=== PATIENT | female | born 1960 | race Caucasian/White ===

== ENCOUNTER 2017-10-29 08:12 | Emergency (ER) | payer OTHER ==
[2017-10-29] MEDS ORDERED: methylPREDNISolone SOD SUCCI 125 MG/2 ML VIAL IV STA (08:34)
--- NOTE | 2017-10-29 08:55 | XR ---
EXAMINATION TYPE: XR chest 2V DATE OF EXAM: 10/29/2017 COMPARISON: NONE TECHNIQUE: PA and lateral views submitted. HISTORY: Cough and pain FINDINGS: The lungs are clear and there is no pneumothorax, pleural effusion, or focal pneumonia. Large bulla involving the right upper lobe with areas of subsegmental consolidation which may be compressive. Di ffuse COPD noted. Mediport catheter noted. No pleural effusion. Degenerative change of the spine note d. IMPRESSION: 1. Diffuse COPD with large bulla involving the right upper lobe. Area of consolidation seen in the ri ght perihilar region. May be compressive related to the bulla rather than related to mass or infiltra te correlate clinically.
[2017-10-29 09:03] LABS: Basophils % (A) 0 %; Eosinophils # (A) 0.1 k/uL (0-0.7); Eosinophils % (A) 1 %; HCT 40.5 % (34.0-46.0); HGB 13.2 gm/dL (11.4-16.0); Lymphocytes # (A) 2.2 k/uL (1.0-4.8); Lymphocytes % (A) 22 %; MCH 36.3 pg (25.0-35.0); MCHC 32.6 g/dL (31.0-37.0); MCV 111.4 fL (80.0-100.0); Macrocytosis Marked; Mean Platelet Volume 6.9; Monocytes # (A) 0.5 k/uL (0-1.0); Monocytes % (A) 5 %; Neutrophils # (A) 7.1 k/uL (1.3-7.7); Neutrophils % (A) 71 %; Platelet Count 255 k/uL (150-450); RBC 3.64 m/uL (3.80-5.40); RDW 13.4 % (11.5-15.5); WBC 10.1 k/uL (3.8-10.6)
--- NOTE | 2017-10-29 09:03 | ED ---
SOB HPI - General Chief Complaint: Shortness of Breath Stated Complaint: LAURO Time Seen by Provider: 10/29/17 08:28 Source: patient, EMS, RN notes reviewed Mode of arrival: EMS Limitations: no limitations - History of Present Illness Initial Comments: This a 57-year-old female presents emergency Department chief complaint cough congestion, shortness of breath. Patient states she has known COPD, lung cancer. [facility] [place] Patient states that cancers on the right side. Patient states that [facility] states his been getting worse cough congestion shortness breath the last few days. She was given a DuoNeb treatment by EMS which improved her symptoms. She denies any known fever, chills. Patient denies headache, dizziness she does admit to some sinus congestion. Patient currently is at [place] for alcohol abuse treatment - Related Data Home Medications Medication Instructions Recorded Confirmed Acetaminophen Tab [Tylenol Tab] 650 mg PO Q4H PRN 10/29/17 10/29/17 Albuterol Nebulized [Ventolin 2.5 mg INHALATION RT-Q4H PRN 10/29/17 10/29/17 Nebulized] Calcium Carb/Magnesium Ox,Carb 2 tab PO TID 10/29/17 10/29/17 [Jered-Mag 500-250 MG Chewable] Dexamethasone [Hexadrol] 4 mg PO DAILY 10/29/17 10/29/17 Ibuprofen [Motrin] 600 mg PO Q6H PRN 10/29/17 10/29/17 Mometasone/Formoterol [Dulera 200 2 puff INHALATION RT-BID 10/29/17 10/29/17 Mcg/5 Mcg Inhaler] PARoxetine HCL [Paxil] 40 mg PO DAILY 10/29/17 10/29/17 cloNIDine HCL [Catapres] 0.1 - 0.3 mg PO Q4H PRN 10/29/17 10/29/17 traZODone HCL 50 - 150 mg PO HS 10/29/17 10/29/17 Previous Rx's Medication Instructions Recorded Azithromycin [Zithromax Z-pack] 0 mg PO DIRECTED #1 pack 10/29/17 Ipratropium-Albuterol Nebulize 3 ml INHALATION QID #1 box 10/29/17 [Duoneb 0.5 mg-3 mg/3 ml Soln] predniSONE 50 mg PO DAILY #5 tab 10/29/17 Allergies Allergy/AdvReac Type Severity Reaction Status Date / Time No Known Allergies Allergy Verified 10/29/17 09:04 Review of Systems ROS Statement: Those systems with pertinent positive or pertinent negative responses have been documented in the HPI. ROS Other: All systems not noted in ROS Statement are negative. Past Medical History Past Medical History: COPD, Pneumonia Additional Past Medical History / Comment(s): Lung cancer History of Any Multi-Drug Resistant Organisms: MRSA Date of last positivie culture/infection: 01/2017 MDRO Source:: sputum Past Surgical History: Hysterectomy Additional Past Surgical History / Comment(s): currently in rehab for ETOH Past Psychological History: ADD/ADHD, Anxiety, Depression Smoking Status: Current every day smoker Past Alcohol Use History: Abuse Past Drug Use History: None Reported General Exam Limitations: no limitations General appearance: alert, in no apparent distress Head exam: Present: atraumatic, normocephalic, normal inspection Eye exam: Present: normal appearance, PERRL, EOMI. Absent: scleral icterus, conjunctival injection, periorbital swelling ENT exam: Present: normal exam, normal oropharynx, mucous membranes moist, TM's normal bilaterally Neck exam: Present: normal inspection, full ROM. Absent: tenderness, meningismus, lymphadenopathy Respiratory exam: Present: wheezes. Absent: normal lung sounds bilaterally, respiratory distress, rales, rhonchi, stridor Cardiovascular Exam: Present: regular rate, normal rhythm, normal heart sounds. Absent: systolic murmur, diastolic murmur, rubs, gallop, clicks GI/Abdominal exam: Present: soft, normal bowel sounds. Absent: distended, tenderness, guarding, rebound, rigid Course Vital Signs 10/29/17 10/29/17 08:14 08:25 Temperature 98.5 F Pulse Rate 97 94 Respiratory 20 20 Rate Blood Pressure 111/62 O2 Sat by Pulse 94 L Oximetry - Reevaluation(s) Reevaluation #1: 10/29/17 09:50 Patient was reevaluated and updated on results. She states her shortness of breath has not returned she still feels well. Medical Decision Making - Medical Decision Making 57-year-old female presents emergency Department with chief complaint of cough congestion. Patient has underlying COPD, cancer. Patient states she still feels improved after 1 DuoNeb treatment. She was given Solu-Medrol in emergency department. Patient we discharged on prednisone, DuoNeb, azithromycin. She'll be discharged back to [facility] return parameters were discussed. - Lab Data Result diagrams: 10/29/17 08:15 10/29/17 08:15 Lab Results 10/29/17 10/29/17 10/29/17 Range/Units 08:15 08:15 08:15 WBC 10.1 (3.8-10.6) k/uL RBC 3.64 L (3.80-5.40) m/uL Hgb 13.2 (11.4-16.0) gm/dL Hct 40.5 (34.0-46.0) % MCV 111.4 H (80.0-100.0) fL MCH 36.3 H (25.0-35.0) pg MCHC 32.6 (31.0-37.0) g/dL RDW 13.4 (11.5-15.5) % Plt Count 255 (150-450) k/uL Neutrophils % 71 % Lymphocytes % 22 % Monocytes % 5 % Eosinophils % 1 % Basophils % 0 % Neutrophils # 7.1 (1.3-7.7) k/uL Lymphocytes # 2.2 (1.0-4.8) k/uL Monocytes # 0.5 (0-1.0) k/uL Eosinophils # 0.1 (0-0.7) k/uL Basophils # 0.0 (0-0.2) k/uL Manual Slide Review Performed Poikilocytosis (manual Present Anisocytosis (manual) Present Macrocytosis Marked Sodium 143 (137-145) mmol/L Potassium 3.6 (3.5-5.1) mmol/L Chloride 106 (98-107) mmol/L Carbon Dioxide 26 (22-30) mmol/L Anion Gap 11 mmol/L BUN 15 (7-17) mg/dL Creatinine 0.60 (0.52-1.04) mg/dL Est GFR (MDRD) Af Amer >60 (>60 ml/min/1.73 sqM) Est GFR (MDRD) Non-Af >60 (>60 ml/min/1.73 sqM) Glucose 122 H (74-99) mg/dL Calcium 9.5 (8.4-10.2) mg/dL Total Bilirubin 0.3 (0.2-1.3) mg/dL AST 26 (14-36) U/L ALT 39 (9-52) U/L Alkaline Phosphatase 60 (38-126) U/L Troponin I (0.000-0.034) ng/mL Total Protein 6.8 (6.3-8.2) g/dL Albumin 3.8 (3.5-5.0) g/dL Influenza Type A RNA Not Detected (Not Detectd) Influenza Type B (PCR) Not Detected (Not Detectd) 10/29/17 Range/Units 08:15 WBC (3.8-10.6) k/uL RBC (3.80-5.40) m/uL Hgb (11.4-16.0) gm/dL Hct (34.0-46.0) % MCV (80.0-100.0) fL MCH (25.0-35.0) pg MCHC (31.0-37.0) g/dL RDW (11.5-15.5) % Plt Count (150-450) k/uL Neutrophils % % Lymphocytes % % Monocytes % % Eosinophils % % Basophils % % Neutrophils # (1.3-7.7) k/uL Lymphocytes # (1.0-4.8) k/uL Monocytes # (0-1.0) k/uL Eosinophils # (0-0.7) k/uL Basophils # (0-0.2) k/uL Manual Slide Review Poikilocytosis (manual Anisocytosis (manual) Macrocytosis Sodium (137-145) mmol/L Potassium (3.5-5.1) mmol/L Chloride (98-107) mmol/L Carbon Dioxide (22-30) mmol/L Anion Gap mmol/L BUN (7-17) mg/dL Creatinine (0.52-1.04) mg/dL Est GFR (MDRD) Af Amer (>60 ml/min/1.73 sqM) Est GFR (MDRD) Non-Af (>60 ml/min/1.73 sqM) Glucose (74-99) mg/dL Calcium (8.4-10.2) mg/dL Total Bilirubin (0.2-1.3) mg/dL AST (14-36) U/L ALT (9-52) U/L Alkaline Phosphatase (38-126) U/L Troponin I <0.012 (0.000-0.034) ng/mL Total Protein (6.3-8.2) g/dL Albumin (3.5-5.0) g/dL Influenza Type A RNA (Not Detectd) Influenza Type B (PCR) (Not Detectd) - EKG Data EKG Comments: EKG performed a: 52 normal sinus rhythm with a rate of 87 RI 158 QRS 86 QT/ QTC 384/462 Disposition Clinical Impression: COPD (chronic obstructive pulmonary disease), Acute bronchitis Disposition: HOME SELF-CARE Condition: Stable Instructions: COPD (Chronic Obstructive Pulmonary Disease) (ED) Additional Instructions: Please return to the Emergency Department if symptoms worsen or any other concerns. Prescriptions: Azithromycin [Zithromax Z-pack] 0 mg PO DIRECTED #1 pack Ipratropium-Albuterol Nebulize [Duoneb 0.5 mg-3 mg/3 ml Soln] 3 ml INHALATION QID #1 box predniSONE 50 mg PO DAILY #5 tab Referrals: Andrea Maradiaga DO [Primary Care Provider] - 1-2 days Time of Disposition: 09:52
[2017-10-29 09:04] LABS: ALT 39 U/L (9-52); AST 26 U/L (14-36); Albumin 3.8 g/dL (3.5-5.0); Alkaline Phosphatase 60 U/L (38-126); Anion Gap 11 mmol/L; Blood Urea Nitrogen 15 mg/dL (7-17); Calcium 9.5 mg/dL (8.4-10.2); Carbon Dioxide 26 mmol/L (22-30); Chloride 106 mmol/L (98-107); Glucose 122 mg/dL (74-99); Potassium 3.6 mmol/L (3.5-5.1); Sodium 143 mmol/L (137-145); Total Bilirubin 0.3 mg/dL (0.2-1.3); Total Protein 6.8 g/dL (6.3-8.2)
[2017-10-29 09:40] LABS: Anisocytosis (M) Present; Poikilocytosis (M) Present
[2017-10-29 10:04] VITALS: BP 100/57; PULSE 82; RESP 18; TEMP 98.7
== END 2017-10-29 10:03 | disposition home or self-care (01) ==
LOC: EC 08:12
DX: J44.9 Chronic obstructive pulmonary disease, unspecified (principal); J20.9 Acute bronchitis, unspecified; F32.9 Major depressive disorder, single episode, unspecified; F90.9 Attention-deficit hyperactivity disorder, unspecified type; F41.9 Anxiety disorder, unspecified; F17.200 Nicotine dependence, unspecified, uncomplicated; Z86.14 Personal history of Methicillin resistant Staphylococcus aureus infection; Z85.118 Personal history of other malignant neoplasm of bronchus and lung; Z79.51 Long term (current) use of inhaled steroids; Z79.899 Other long term (current) drug therapy
CPT/HCPCS: 36415; 93005; 80053; 84484; 85025; 87502; 71046; 99285; 96374; J2930